=== PATIENT | female | born 1965 | race Caucasian/White ===

== ENCOUNTER → 2025-03-14 12:10 | Outpatient (CLI) | payer OTHER, SELFPAY ==
[2025-03-14 13:10] LABS: Influenza A - CEPHEID Flu A NEGATIVE (NEGATIVE); Influenza B - CEPHEID Flu B NEGATIVE (NEGATIVE); Respiratory Syncytial Virus Negative (Negative)
[2025-03-14 13:30] LABS: COVID-19 CEPHEID 4-PLEX PCR Negative (Negative)
== END ==
PROVIDERS: PCP Family Medicine; Visit Provider Chiropractor
DX: R05.1 Acute cough (principal)
CPT/HCPCS: 0241U; 87070; 87147